=== PATIENT | female | born 1955 | race Caucasian/White ===

== ENCOUNTER → 2024-01-26 14:54 | Outpatient (REF) | payer BC, SELFPAY | LOC: RAD 14:54 | PROVIDERS: ATTENDING PHYSICIAN Internal Medicine Gastroenterology; FAMILY PHYSICIAN Family Medicine | DX: R11.0 Nausea (principal); R63.4 Abnormal weight loss; R10.13 Epigastric pain | CPT/HCPCS: 70470; 74174; Q9967 ==

== ENCOUNTER → 2025-04-19 09:40 | Outpatient (REF) | payer BC, SELFPAY | LOC: RAD 09:40 | PROVIDERS: ATTENDING PHYSICIAN Family Medicine | DX: R22.1 Localized swelling, mass and lump, neck (principal) | CPT/HCPCS: 76536 ==